=== PATIENT | male | born 1955 | race Caucasian/White ===

== ENCOUNTER 2021-10-05 15:02 | Outpatient (CLI) | payer MEDICARE, OTHER | END 2021-10-05 15:03 | disposition home or self-care (01) | LOC: TBSIIMAG 15:02 | PROVIDERS: ATTEND Clinical Nurse Specialist Medical-Surgical | DX: M25.512 Pain in left shoulder (principal); M75.122 Complete rotator cuff tear or rupture of left shoulder, not specified as traumatic; S46.812A Strain of other muscles, fascia and tendons at shoulder and upper arm level, left arm, initial encounter; M75.32 Calcific tendinitis of left shoulder ==

== ENCOUNTER 2023-05-22 07:21 | Day surgery (SDC) | payer MEDICARE, OTHER ==
[2023-05-15 17:06] VITALS: BMI 25.7
[2023-05-22] MEDS ORDERED: Dexamethasone 4 mg/ml Vial ONE (07:34)
[2023-05-22] MEDS ORDERED: Rocuronium Bromide 10 MG/ML (10ML VIAL) ONE (07:34)
[2023-05-22] MEDS ORDERED: Midazolam HCl 2 mg/2 ml Vial ONE (07:34)
[2023-05-22] MEDS ORDERED: Lidocaine 1% PF 5 ML VIAL ONE (07:34)
[2023-05-22] MEDS ORDERED: PROPOFOL 20 ML ONE (07:34)
[2023-05-22] MEDS ORDERED: fentaNYL PF 100 MCG/2 ML SYRINGE ONE (07:34)
[2023-05-22] MEDS ORDERED: SUGAMMADEX SODIUM 200 MG/2 ML VIAL ONE (07:34)
[2023-05-22] MEDS ORDERED: Ondansetron PF 4 MG/2 ML Vial ONE (07:34)
[2023-05-22] MEDS ORDERED: Acetaminophen 500 MG TAB ONE (08:03)
[2023-05-22] MEDS ORDERED: HYDROmorphone 0.5 MG/0.5 ML SYRINGE ONE ×3 (09:24→11:16)
[2023-05-22] MEDS ORDERED: EPINEPHrine 1 MG/ML VIAL ONE (09:39)
[2023-05-22] MEDS ORDERED: Bupivacaine PF 0.5% 30 ML VIAL ONE (09:39)
[2023-05-22] MEDS ORDERED: Sodium Chloride 0.9% 100 ML ONE ×2 (09:43→13:14)
[2023-05-22] MEDS ORDERED: CEFAZOLIN 2 GM VIAL ONE ×2 (09:43→13:14)
[2023-05-22] MEDS ORDERED: ePHEDrine Sulfate 50 MG/10 ML VIAL ONE (10:38)
[2023-05-22] MEDS ORDERED: Tamsulosin HCl 0.4 MG CAP ONE (11:16)
[2023-05-22] MEDS ORDERED: Fentanyl 250 MCG/5 ML VIAL ONE (11:16)
[2023-05-22] MEDS ORDERED: Cyclobenzaprine 10 MG TAB ONE (13:13)
[2023-05-22] MEDS ORDERED: HYDROcodone/Acetaminophen 5/325 mg Tablet ONE (13:14)
== END 2023-05-22 14:30 | disposition home or self-care (01) ==
LOC: SDC 07:21
PROVIDERS: ATTEND Neurological Surgery
PROC: 01NB0ZZ Release Lumbar Nerve, Open Approach (ICD-10-PCS; principal; 2023-05-22)
DX: M48.062 Spinal stenosis, lumbar region with neurogenic claudication (principal); M54.16 Radiculopathy, lumbar region; E78.5 Hyperlipidemia, unspecified; G89.29 Other chronic pain; Z98.890 Other specified postprocedural states; Z87.891 Personal history of nicotine dependence; Z79.899 Other long term (current) drug therapy
CPT/HCPCS: 63047; J0171; J0665; J1100; J1170; J2250; J2405; J2704; J3010; J3490